=== PATIENT | male | born 1990 | race Caucasian/White ===

== ENCOUNTER 2024-05-10 12:57 | Emergency (ER) | payer OTHER ==
[2024-05-10] MEDS ORDERED: Lidocaine 1% 5 ML VIAL INFILT ONE (12:58)
[2024-05-10] MEDS: Diphtheria,Pertussis(Acell),Tetanus Vaccine 0.5 ML Syringe IM ONE (13:15)
[2024-05-10] MEDS: Bacitracin Oint 1 GM U/D Packet TOP ONE (13:16)
== END 2024-05-10 14:18 | disposition home or self-care (01) ==
LOC: FB.ED 12:57
DX: S67.22XA Crushing injury of left hand, initial encounter (principal); F17.200 Nicotine dependence, unspecified, uncomplicated; Z23 Encounter for immunization; X58.XXXA Exposure to other specified factors, initial encounter
CPT/HCPCS: 12001; 73130-LT; 90471; 90715; 99283-25